=== PATIENT | male | born 2000 | race Caucasian/White ===

== ENCOUNTER 2019-10-20 22:11 | Emergency (ER) | payer SELFPAY ==
--- NOTE | 2019-10-20 22:31 | EDM.PDOC ---
ED HPI GENERAL MEDICAL PROBLEM - General Chief Complaint: General Stated Complaint: Genital bump Time Seen by Provider: 10/20/19 22:25 Source of Information: Reports: Patient, Significant Other. Denies: Old Records (No [facility] records available) History Limitations: Reports: No Limitations - History of Present Illness INITIAL COMMENTS - FREE TEXT/NARRATIVE: The patient was brought to the emergency room via private automobile by his fiance for evaluation of progressive swelling under his penis in the perineum area with symptoms starting about 3-4 days ago. He complains of 6/10 pain with no recent history of drainage, localized injury, etc., although his fiance did accidentally bumped the area while they were sleeping 3 nights ago. His symptoms have increased during the last hour with no medications to this point. He denies any gross hematuria, colic, or any other UTI symptoms. No recent history of abdominal pain, heartburn, nausea, diarrhea, melena, gross hematochezia, or any food intolerance, including fatty foods, etc.. The patient also denies any recent fever, cough, wheezing, dyspnea, etc.. Onset: Gradual Onset Date: 10/17/19 Duration: Constant, Getting Worse Location: Reports: Other (As above). Denies: Chest, Abdomen, Radiates to Quality: Reports: Sharp Severity: Moderate Improves with: Reports: None Worsens with: Reports: None Context: Reports: Other (As above). Denies: Sick Contact, Trauma Associated Symptoms: Denies: Chest Pain, Cough, Diaphoresis, Fever/Chills, Malaise, Shortness of Breath, Weakness Treatments HUMAN CAPITAL CONSULTANT: Reports: Other (see below) (None) Groin Pain Score (Numeric/FACES): 6 - Related Data Allergies Allergy/AdvReac Type Severity Reaction Status Date / Time ondansetron [From Zofran] Allergy Other Verified 10/20/19 22:19 Home Meds: Home Meds Sulfamethoxazole/Trimethoprim [Bactrim Ds Tablet] 1 each PO BIDMEALS #14 tablet 10/20/19 [Rx] Past Medical History HEENT History: Reports: Other (See Below) Other HEENT History: Left-sided strabismus convergence Musculoskeletal History: Reports: Fracture, Other (See Below) Other Musculoskeletal History: Left femur fracture at age 9. - Past Surgical History Musculoskeletal Surgical History: Reports: ORIF, Other (See Below) Other Musculoskeletal Surgeries/Procedures:: ORIF of left femur fracture at age 9. Social & Family History - Tobacco Use Smoking Status *Q: Current Every Day Smoker Tobacco Use Within Last Twelve Months: Cigarettes Years of Tobacco use: 8 Packs/Tins Daily: 2 Packs/Tins Daily Comment: Started smoking at age 11. Used Tobacco, but Quit: No Smoking Cessation Information Provided To Patient: Yes Second Hand Smoke Exposure: Yes Source of Second Hand Smoke Exposure: Fianc smokes Second Hand Smoke Education Provided: Yes - Alcohol Use Alcohol Use History: No Days Per Week of Alcohol Use: 0 Number of Drinks Per Day: 0 Total Drinks Per Week: 0 Alcohol Use in Last Twelve Months: No - Recreational Drug Use Recreational Drug Use: No Drug Use in Last 12 Months: No Recreational Drug Type: Denies: Amphetamines (Speed), Cocaine, Heroin, Inhalants (Glues, Solvents, Aerosols), LSD (Acid), Marijuana/Hashish, Methamphetamine, Morphine, Oxycodone - Living Situation & Occupation Living situation: Reports: with Significant Other ED ROS GENERAL - Review of Systems Review Of Systems: Comprehensive ROS is negative, except as noted in HPI. ED EXAM, GENERAL - Physical Exam Exam: See Below Exam Limited By: No Limitations General Appearance: Alert, WD/WN, No Apparent Distress Eye Exam: Left Eye: Other (Strabismus convergence) Head: Atraumatic, Normocephalic Neck: Normal Inspection, Supple, Non-Tender, Full Range of Motion. No: Lymphadenopathy (L), Lymphadenopathy (R), Thyromegaly Respiratory/Chest: No Respiratory Distress, Lungs Clear, Normal Breath Sounds, No Accessory Muscle Use, Chest Non-Tender. No: Pleural Rub, Retractions Cardiovascular: Normal Peripheral Pulses, Regular Rate, Rhythm, No Edema, No Gallop, No JVD, No Murmur, No Rub. No: Gallop/S3, Gallop/S4, Friction Rub Peripheral Pulses: 2+: Radial (L), Radial (R) GI/Abdominal: Normal Bowel Sounds, Soft, Non-Tender, No Organomegaly, No Distention, No Abnormal Bruit, No Mass. No: Guarding (Male) Exam: Circumcised, Rash (0.5 cm in diameter swelling/abscess with mild purulent drainage just inferior to the penile shaft in the perineum with no lymphangitis). No: Hernia, Inguinal Lymphadenopathy, Penile Lesions, Scrotal Swelling, Scrotum Tenderness (L), Scrotum Tenderness (R), Testicular Tenderness (L), Testicular Tenderness (R), Urethral Discharge Rectal (Males) Exam: Deferred Back Exam: Normal Inspection, Full Range of Motion. No: CVA Tenderness (L), CVA Tenderness (R), Muscle Spasm Extremities: Normal Inspection, Normal Range of Motion, Non-Tender, No Pedal Edema, Normal Capillary Refill. No: Christopher's Sign Neurological: Alert, Oriented, CN II-XII Intact, Normal Cognition, Normal Gait, No Motor/Sensory Deficits Psychiatric: Normal Affect, Normal Mood Skin Exam: Tattoo(s) (Multiple), Wound/Incision (As above). No: Increased Warmth, Lymphangitis Lymphatic: No Adenopathy ED I&D PROCEDURES - I&D Site: Perineum Skin prep: Chlorhexidine (Hibiciens) Local anesthesia - Lidocaine (Xylocaine): 1% Plain Local Anesthetic Volume: 4cc Area Incised With: Needle (18-gauge) Drainage: Purulent, Small Amount Probed to Break Up Loculations: No Sterile Dressing: Other (Neosporin applied with 4 x 4 gauze pads as support) Complications: No Progress/Comments: Note that 1% lidocaine was also used to flush out the incision and drainage site and borderline abscess. Specimen collected for gram stain and culture and sensitivity Course - Vital Signs Last Recorded V/S: Last Vital Signs Temp 36.7 C 10/20/19 22:20 Pulse 73 10/20/19 22:20 Resp 12 10/20/19 22:20 BP 121/64 10/20/19 22:20 Pulse Ox 98 10/20/19 22:20 Vital Signs - 24 hr 10/20/19 22:20 Temperature [ 36.7 C Temporal] Pulse, 73 Peripheral [ Right Pulse Oximetry] Respiratory 12 Rate Blood Pressure 121/64 [Right Upper Arm] O2 Sat by Pulse 98 Oximetry - Orders/Labs/Meds Orders: Active Orders 24 hr Category Date Time Status CULTURE WOUND + SMEAR [RM] Stat Lab 10/20/19 22:32 Ordered Obtain Past Medical Record [OM.PC] Routine Oth 10/20/19 22:32 Active Labs: Specimen collected for Gram stain and culture and sensitivity. Meds: Medications Discontinued Medications Generic Name Dose Route Start Last Admin Trade Name Del PRN Reason Stop Dose Admin Lidocaine HCl 5 ml 10/20/19 22:32 Xylocaine-Mpf 1% INJECT 10/20/19 22:33 ONETIME ONE Neomycin/Polymyxin/Bacitracin 1 each 10/20/19 22:41 Triple Antibiotic Oint TOP 10/20/19 22:42 ONETIME ONE - Radiology Interpretation Free Text/Narrative:: None Departure - Departure Time of Disposition: 23:00 Disposition: Home, Self-Care 01 Condition: Good Clinical Impression: Folliculitis, Tobacco abuse counseling - Discharge Information *PRESCRIPTION DRUG MONITORING PROGRAM REVIEWED*: Not Applicable *COPY OF PRESCRIPTION DRUG MONITORING REPORT IN PATIENT LITZY: Not Applicable Prescriptions: Sulfamethoxazole/Trimethoprim [Bactrim Ds Tablet] 1 each PO BIDMEALS #14 tablet Instructions: Steps to Quit Smoking, [id number], Health Risks of Smoking, Folliculitis Forms: ED Department Discharge Additional Instructions: 1. Follow up with your regular provider in 10-14 days as needed, if symptoms persist. Bring these discharge instructions with you to that visit.. 2. Tylenol 650 mg by mouth every 4 hours and/or OTC ibuprofen 2-3 tabs by mouth every 6 hours with food as directed./needed. You may stagger these medications for 48-72 hours only, which essentially means that you are receiving a pain medication about every 2 hours. 3. Antibacterial soap wash/soak with subsequent antibacterial dressing such as Neosporin, etc. as directed 2 times per day until the wound site completely heals. Keep the area clean and dry with activity restrictions as discussed. Never use hydrogen peroxide for wound care. 4. Take all 10 days of the antibiotic has discuss, i.e., both emergency room and pharmacy prescriptions. 5. Stop all tobacco use LUCINA as directed/per provided information and consider contacting Quit LIne, etc.. 6. Immediately after this visit verify that your cellular telephone's voicemail has been activated and is empty. Also verify that your home telephone 's answering machine is operating properly and has space to receive messages. Note that it is sometimes necessary for us to be able to contact you at a later date to discuss your medical care. 7. Please remember that we are ALWAYS here for you and want to answer any questions you may have. Feel free to call the hospital any time and we call you back LUCINA. - Problem List & Annotations (1) Folliculitis SNOMED Code(s): 39686596 Code(s): L73.9 - FOLLICULAR DISORDER, UNSPECIFIED Status: Acute Priority : High Onset Date: ~10/17/19 Annotation/Comment:: Incision and drainage procedure as above. Borderline cellulitis and beginning abscess. Bactrim DS therapy 10 days with initial emergency room prescription for 3 days of therapy provided. Wound care discussed. (2) Tobacco abuse counseling SNOMED Code(s): 369463251, 329721328, 976726062 Code(s): Z71.6 - TOBACCO ABUSE COUNSELING Status: Chronic Priority: Medium Annotation/Comment:: Tobacco cessation strongly encouraged. Tobacco cessation information provided. - Problem List Review Problem List Initiated/Reviewed/Updated: Yes - My Orders Last 24 Hours: My Active Orders 10/20/19 22:32 CULTURE WOUND + SMEAR [RM] Stat Obtain Past Medical Record [OM.PC] Routine - Assessment/Plan Last 24 Hours: My Active Orders 10/20/19 22:32 CULTURE WOUND + SMEAR [RM] Stat Obtain Past Medical Record [OM.PC] Routine Assessment:: As above Plan: As above. Extensive precautions were given to the patient and his fiance, who are in agreement with the treatment plan. See Patient Instructions for further treatment and plan.
[2019-10-20] MEDS ORDERED: Bacitracin/Neomycin/Polymyxin B Oint 0.9 GM U/D Packet TOP ONE (22:41)
== END 2019-10-20 22:55 | disposition home or self-care (01) ==
LOC: LL.ED 22:11
DX: L73.9 Follicular disorder, unspecified (principal); L02.215 Cutaneous abscess of perineum; F17.210 Nicotine dependence, cigarettes, uncomplicated; Z71.6 Tobacco abuse counseling; Z88.8 Allergy status to other drugs, medicaments and biological substances
CPT/HCPCS: 10060; 87070; 87077; 87205; 99283-25